=== PATIENT | female | born 1960 | race Caucasian/White ===

== ENCOUNTER 2023-10-12 15:58 | Outpatient (CLI) | payer BC, SELFPAY | END 2023-10-12 15:59 | disposition home or self-care (01) | LOC: NFLDREF 10-14 10:41 | PROVIDERS: Visit Provider Physician Assistant | DX: R30.0 Dysuria (principal); M54.9 Dorsalgia, unspecified; M54.50 Low back pain, unspecified; R35.0 Frequency of micturition | CPT/HCPCS: 87086 ==

== ENCOUNTER 2023-10-13 09:58 | Emergency (ER) | payer BC, SELFPAY ==
[2023-10-13 10:08] VITALS: BP 142/92; PULSE 74; RESP 18; TEMP 36.4; O2SAT 97; BMI 26.0
[2023-10-13 10:45] LABS: Appearance Urine Clear (Clear); Bilirubin Urine Negative (Negative); Blood Urine Negative (Negative); Color Urine Yellow (Yellow); Glucose Urine Negative (Negative); Ketones Urine Negative (Negative); Leukocyte Esterase Urine Negative (Negative); Nitrite Urine Negative (Negative); Protein Urine Negative (Negative); Urobilinogen Urine 0.2 (0.2-1.0)
[2023-10-13 11:08] LABS: RBC Urine 0-2 (0-2); WBC Clumps Urine Few; WBC Urine 0-2 (0-5)
--- NOTE | 2023-10-13 11:21 | CRLHL7_ITS ---
For Patients: As a result of the Century Cures Act, medical imaging exams and procedure reports are released immediately into your electronic medical record. You may view this report before your referring provider. If you have questions, please contact your health care provider. INDICATION: Hematuria and severe back pain. TECHNIQUE: Multiplanar CT examination of the abdomen and pelvis were acquired without the use of intravenous contrast. COMPARISON: None. FINDINGS: Lower chest: Linear bandlike opacifications of the lung bases likely due to subsegmental atelectasis and/or scarring. Normal heart size. No focal consolidation. No pleural effusion or pneumothorax.. Liver: Normal. Gallbladder/Biliary: Normal. No biliary ductal dilitation. Pancreas: Normal. Spleen: Normal. Adrenal Glands: Normal. Kidneys: Normal size and symmetrically enhancing. No obstructive calculi or hydronephrosis. Punctate nonobstructive calculus within the collecting system of the right kidney. Ureters: Tiny obstructive calculus measuring 2 mm within the distal right ureter just proximal to the ureterovesical junction (2:31). Bladder: Unremarkable. Bowel: No obstruction or bowel wall thickening. Appendectomy. No significant colonic diverticulosis. Pelvic organs: Unremarkable. Peritoneum: No free fluid or pneumoperitoneum. Vessels: Normal. Patency of the vasculature is not assessed on this noncontrast examination. No significant atherosclerotic disease. Lymph Nodes: No lymphadenopathy. Abdominal Wall/Soft Tissues: Unremarkable. Bones: Degenerative changes of the lumbar spine. No acute osseous abnormalities identified.. IMPRESSION: 2 mm obstructive urinary calculus within the distal right ureter just proximal to its UVJ, without significant hydronephrosis. Please note that all CT scans at this facility use dose modulation, iterative reconstruction, and/or weight-based dosing when appropriate to reduce radiation dose to as low as reasonably achievable. Dictated by Los Rubalcava MD @ 10/13/2023 12:07:02 PM (Electronically Signed)
--- NOTE | 2023-10-13 12:36 | ED.FEMALEGU ---
HPI - Female Genitourinary General Chief complaint: Urogenital Problems, Female Stated complaint: Blood in urine, suspected kidney issues Time Seen by Provider: 10/13/23 11:03 History of Present Illness HPI Narrative: Patient is 62-year-old woman who went to the urgent care last night for intermittent hematuria. Patient has had urinary frequency but minimal dysuria. UA showed hematuria but no signs of infection. Patient was told to come to the the emergency room which he did today. Her urine today is normal. She still left with urinary frequency and dysuria. I did do a CT of her abdomen pelvis upon arrival in she does have a 2 mm stone at the right UVJ. Patient otherwise feels well and has no other major complaints or concerns. Related Data Home Medications Medication Instructions Recorded Confirmed No Known Home Medications 10/12/23 10/12/23 Allergies Allergy/AdvReac Type Severity Reaction Status Date / Time No Known Drug Allergies Allergy Verified 10/12/23 16:24 Review of Systems Status of ROS: Reports: 10 or more systems reviewed and unremarkable except as noted in History and below Exam Narrative: Exam Narrative: EXAM GENERAL: Patient appears comfortable and well. EYES: No scleral icterus. ENT: Tympanic membranes and oropharynx normal. THYROID: no thyroid nodules or thyromegaly. LYMPH: No supraclavicular or cervical lymphadenopathy. SKIN: Visible skin seen during exam normal or with benign process only. EXT: No dependent lower extremity pedal edema. HEART: Regular rate and rhythm with no murmurs, rubs, or gallops. LUNGS: Clear to auscultation bilaterally with no crackles or wheezes. ABD: Soft, non tender, non distended. PSYCH: Good eye contact, speech is not pressured. Const: Vital Signs, click to edit/add: Vital Signs - 24 hr 10/13/23 10:08 Temperature 97.6 F Pulse Rate [Right Pulse Oximeter] 74 Respiratory Rate 18 Blood Pressure [Ri ght Upper Arm] 142/92 H Pulse Oximetry 97 Oxygen Delivery Me thod Room Air Course Course ED Course: Patient seen examined. She is asymptomatic. In given the urinary screening candidate for at home and I did educate her that she has a small kidney stone which passed on its own. I did recommend plenty of rest plenty of fluids cranial urine and follow-up with primary physician as needed. Vital Signs Vital signs: Initial Vital Signs Temperature 97.6 F 10/13/23 10:08 Temperature Source Temporal Artery Scan 10/13/23 10:08 Pulse Rate 74 10/13/23 10:08 Respiratory Rate 18 10/13/23 10:08 Blood Pressure 142/92 H 10/13/23 10:08 Blood Pressure Mean 108 H 10/13/23 10:08 Blood Pressure Position Sitting 10/13/23 10:08 Pulse Oximetry 97 10/13/23 10:08 Oxygen Delivery Method Room Air 10/13/23 10:08 Vital Signs Temperature 97.6 F 10/13/23 10:08 Pulse Rate 74 10/13/23 10:08 Respiratory Rate 18 10/13/23 10:08 Blood Pressure 142/92 H 10/13/23 10:08 Pulse Oximetry 97 10/13/23 10:08 Oxygen Delivery Method Room Air 10/13/23 10:08 Temperature 97.6 F 10/13/23 10:08 Pulse Rate 74 10/13/23 10:08 Respiratory Rate 18 10/13/23 10:08 Blood Pressure 142/92 H 10/13/23 10:08 Pulse Oximetry 97 10/13/23 10:08 Oxygen Delivery Method Room Air 10/13/23 10:08 MDM - Female Genitourinary Lab Data Labs: Lab Results 10/13/23 Range/Units 10:30 Urine Color Yellow (Yellow) Urine Appearance Clear (Clear) Urine pH 6.0 (5.0-8.5) Ur Specific [place] 1.020 (1.000-1.030) Urine Protein Negative (Negative) Urine Glucose (UA) Negative (Negative) Urine Ketones Negative (Negative) Urine Blood Negative (Negative) Urine Nitrite Negative (Negative) Urine Bilirubin Negative (Negative) Urine Urobilinogen 0.2 (0.2-1.0) Ur Leukocyte Esterase Negative (Negative) Urine RBC 0-2 (0-2) Urine WBC 0-2 (0-5) Urine WBC Clumps Few A (None) Ur Squamous Epith Cells None (None-Few) Discharge Plan Discharge Clinical Impression: Kidney stone Condition: Stable Instructions: Kidney Stones (ED) Additional Instructions: Rest Fluids Tylenol Follow-up with your doctor. Activity Level: No Restrictions Discharge Diet: Regular Prescriptions: No Action No Known Home Medications Follow Up/Referrals: Shannan Alston MD [Primary Care Provider] - Stand Alone Forms: [email or web address] Info Instructions
== END 2023-10-13 13:33 | disposition home or self-care (01) ==
PROVIDERS: Emergency Provider Internal Medicine; PCP Family Medicine
DX: N20.0 Calculus of kidney (principal)
CPT/HCPCS: 74176; 81001; 99283; 99284